=== PATIENT | male | born 1970 | race Caucasian/White ===

== ENCOUNTER → 2016-09-07 | Outpatient (CLI) | payer MEDICAID ==
[~2016-09-07] MED LIST: BACTRIM DS 8001 TA1 PO; CEPHALEXIN500 M1 PO; HYDROCODONE BIT1 T11 PO; Motrin,Rufen800 MG PO; NORCO 5-325 TA1 EACH PO; Orphenadrine C100 MG PO
== END | disposition home or self-care (01) ==
LOC: RAD 13:20
DX: M17.0 Bilateral primary osteoarthritis of knee (principal); G89.29 Other chronic pain

== ENCOUNTER 2016-11-11 12:26 | Emergency (ER) | payer OTHER ==
[~2016-11-11] VITALS: Ht 177.8 cm; Wt 148.3 kg
[2016-11-11] MEDS ORDERED: NAPROSYN500 MG PO (13:20)
[2016-11-11] MEDS ORDERED: LOTRIMIN 1%15 GM T (13:20)
[2016-11-11] MEDS ORDERED: CEPHALEXIN500 M1 PO (13:20)
[2016-11-11] MEDS ORDERED: BACTRIM DS 8001 TA1 PO (13:20)
== END 2016-11-11 13:23 | disposition home or self-care (01) ==
LOC: ED 12:26
DX: L02.214 Cutaneous abscess of groin (principal); L30.8 Other specified dermatitis; Z98.890 Other specified postprocedural states

== ENCOUNTER 2018-05-31 10:34 | Emergency (ER) | payer OTHER ==
[~2018-05-31] VITALS: Ht 177.8 cm; Wt 127.0 kg
[~2018-05-31 10:34] MED LIST changes: +LOTRIMIN 1%15 GM T; +NAPROSYN500 MG PO
[2018-05-31] MEDS ORDERED: NAPROSYN500 MG PO (10:47)
[2018-05-31] MEDS ORDERED: NORCO 5-325 TA1 EACH PO (10:47)
== END 2018-05-31 10:59 | disposition home or self-care (01) ==
LOC: ED 10:34
DX: S46.211A Strain of muscle, fascia and tendon of other parts of biceps, right arm, initial encounter (principal); R03.0 Elevated blood-pressure reading, without diagnosis of hypertension; Z79.2 Long term (current) use of antibiotics; Z79.1 Long term (current) use of non-steroidal anti-inflammatories (NSAID); X50.0XXA Overexertion from strenuous movement or load, initial encounter; Y93.89 Activity, other specified; Y92.89 Other specified places as the place of occurrence of the external cause; Y99.8 Other external cause status

== ENCOUNTER 2019-08-12 21:34 | Emergency (ER) | payer OTHER ==
[~2019-08-12] VITALS: Ht 177.8 cm; Wt 104.3 kg
[2019-08-12 23:03] LABS: BILIRUBIN NEGATIVE (NEGATIVE); BLOOD TRACE-INTACT (NEGATIVE); CLARITY CLEAR (CLEAR); COLOR YELLOW (YELLOW); GLUCOSE NEGATIVE (NEGATIVE); KETONE NEGATIVE (NEGATIVE); LEUKO ESTERASE NEGATIVE (NEGATIVE); NITRITE NEGATIVE (NEGATIVE); SPECIFIC GRAVITY >= 1.030 (1.005-1.030)
[2019-08-12 23:12] LABS: RBC 16-20 rbc/hpf (0-2); URINE AMPHETAMINES < 1000 (1000ng/ml); URINE BARBITURATES < 200 (200ng/ml); URINE BENZODIAZEPINES < 200 (200ng/ml); URINE CANNABINOIDS (THC) > 50 (50ng/ml); URINE COCAINE < 300 (300ng/ml); URINE METHADONE < 300 (300ng/ml); URINE OPIATES < 300 (300ng/ml); WBC 0-2 wbc/hpf (0-5)
[2019-08-12 23:13] LABS: URINE PHENCYCLIDINE < 25 (25ng/ml)
== END 2019-08-12 23:32 | disposition home or self-care (01) ==
LOC: ED 21:34
PROVIDERS: Emergency Medicine Emergency Medical Services
DX: S01.81XA Laceration without foreign body of other part of head, initial encounter (principal); S01.01XA Laceration without foreign body of scalp, initial encounter; S16.1XXA Strain of muscle, fascia and tendon at neck level, initial encounter; Y08.89XA Assault by other specified means, initial encounter; Y93.89 Activity, other specified; Y92.89 Other specified places as the place of occurrence of the external cause; Y99.8 Other external cause status

== ENCOUNTER 2019-08-28 10:36 | Emergency (ER) | payer OTHER ==
[~2019-08-28] VITALS: Ht 177.8 cm; Wt 104.3 kg
== END 2019-08-28 11:27 | disposition home or self-care (01) ==
LOC: ED 10:36
DX: S01.81XD Laceration without foreign body of other part of head, subsequent encounter (principal); Z79.2 Long term (current) use of antibiotics; Z79.899 Other long term (current) drug therapy; Y08.89XD Assault by other specified means, subsequent encounter

== ENCOUNTER 2025-06-11 14:41 | Emergency (ER) | payer SELFPAY ==
[~2025-06-11] VITALS: Ht 177.8 cm; Wt 108.9 kg
== END 2025-06-11 16:59 | disposition home or self-care (01) ==
LOC: ED 14:41
DX: S63.501A Unspecified sprain of right wrist, initial encounter (principal); S20.212A Contusion of left front wall of thorax, initial encounter; W10.9XXA Fall (on) (from) unspecified stairs and steps, initial encounter; Y93.89 Activity, other specified; Y92.89 Other specified places as the place of occurrence of the external cause; Y99.8 Other external cause status